=== PATIENT | male | born 1945 | race Caucasian/White ===

== ENCOUNTER 2024-02-27 10:41 | Outpatient (CLI) | payer MEDICARE | END 2024-02-27 10:42 | disposition home or self-care (01) | LOC: CSHSPEC 10:41 | PROVIDERS: ATTEND Neurological Surgery | DX: M47.26 Other spondylosis with radiculopathy, lumbar region (principal); Z95.0 Presence of cardiac pacemaker; M51.16 Intervertebral disc disorders with radiculopathy, lumbar region | CPT/HCPCS: 71045; 72148 ==